=== PATIENT | female | born 1985 | race American Indian/Alaskan Native ===

== ENCOUNTER 2020-03-11 06:31 | Emergency (ER) | payer SELFPAY ==
[2020-03-11 06:50] VITALS: BP 123/88
[2020-03-11] MEDS ORDERED: ONDANSETRON 4 MG/2 ML INJ IV ONE (07:41)
[2020-03-11] MEDS ORDERED: SODIUM CHLORIDE 0.9% 1000 ML 1,000 ML IV ONE (07:41)
[2020-03-11] MEDS ORDERED: HYDROmorphone 1 MG/1 ML INJ IV ONE (07:42)
[2020-03-11 07:58] LABS: Basophils # (Auto) 0.1 K/mm3 (0.0-0.1); Basophils % (Auto) 0.4 % (0.0-1.8); Eosinophils # (Auto) 0.1 K/mm3 (0.0-0.4); Eosinophils % (Auto) 0.7 % (0.0-4.3); Hemoglobin 13.3 gm/dl (10.1-14.3); Lymphocytes # (Auto) 2.1 K/mm3 (1.2-5.4); Lymphocytes % (Auto) 13.7 % (13.4-35.0); Mean Corpuscular HGB Conc 33 % (30-34); Mean Corpuscular Volume 90 fl (79-97); Monocytes # (Auto) 0.5 K/mm3 (0.0-0.8); Platelet Count 354 K/mm3 (140-440); Red Blood Count 4.43 M/mm3 (3.65-5.03); Red Cell Distribution Width 13.5 % (13.2-15.2)
--- NOTE | 2020-03-11 08:14 | Emergency Department Report ---
ED Abdominal Pain HPI - General Chief Complaint: Abdominal Pain Stated Complaint: ABDOMINAL PAIN Time Seen by Provider: 03/11/20 07:36 Source: patient Mode of arrival: Ambulatory Limitations: No Limitations - History of Present Illness Initial Comments: Patient is a 34-year-old female presents emergency room with complaints of upper abdominal pain that began 2 hours prior to arrival. She states that she has pain at her hernia site. She states that she has never seen a general surgeon. She has associated nausea and vomiting that began this morning. She denies any diarrhea, fever, urinary symptoms, hematochezia, hematemesis, melena. Patient states that she drank a significant amount of alcohol last night with her friends due to another friend passing away. She denies any SI or HI. She denies any other past medical history. She denies allergies to medications. She states she is currently on her menstrual cycle. Severity scale (0 -10): 10 - Related Data Previous Rx's Medication Instructions Recorded Last Taken Type Fluconazole [Diflucan TAB] 100 mg PO QDAY #1 tablet 03/11/20 Unknown Rx Ondansetron [Zofran Odt] 4 mg PO Q8HR PRN #10 tab.rapdis 03/11/20 Unknown Rx traMADoL [Ultram 50 MG tab] 50 mg PO Q6HR PRN #7 tablet 03/11/20 Unknown Rx Allergies Allergy/AdvReac Type Severity Reaction Status Date / Time No Known Allergies Allergy Unverified 03/11/20 06:52 ED Review of Systems ROS: Stated complaint: ABDOMINAL PAIN Other details as noted in HPI Comment: All other systems reviewed and negative ED Past Medical Hx - Past Medical History Previous Medical History?: Yes Additional medical history: Hernia - Surgical History Past Surgical History?: No - Social History Smoking Status: Never Smoker Substance Use Type: None - Medications Home Medications: Home Medications Medication Instructions Recorded Confirmed Last Taken Type Fluconazole [Diflucan TAB] 100 mg PO QDAY #1 tablet 03/11/20 Unknown Rx Ondansetron [Zofran Odt] 4 mg PO Q8HR PRN #10 tab.rapdis 03/11/20 Unknown Rx traMADoL [Ultram 50 MG tab] 50 mg PO Q6HR PRN #7 tablet 03/11/20 Unknown Rx ED Physical Exam - General Limitations: No Limitations General appearance: alert, other (in moderate distress secondary to pain, tearful) - Head Head exam: Present: atraumatic, normocephalic - Eye Eye exam: Present: normal appearance - ENT ENT exam: Present: mucous membranes moist - Respiratory Respiratory exam: Present: normal lung sounds bilaterally. Absent: respiratory distress, wheezes, rales, rhonchi, stridor, chest wall tenderness, accessory muscle use, decreased breath sounds, prolonged expiratory - Cardiovascular Cardiovascular Exam: Present: regular rate, normal rhythm, normal heart sounds. Absent: systolic murmur, diastolic murmur, rubs, gallop - GI/Abdominal GI/Abdominal exam: Present: soft, tenderness (upper abdominal at ventral hernia site), guarding, hypoactive bowel sounds, hernia (ventral abdominal wall hernia, pt will not allow me to assess, will order pain meds and try to reexamine to see if reducible). Absent: distended, rebound, rigid - Neurological Exam Neurological exam: Present: alert, oriented X3 - Psychiatric Psychiatric exam: Present: normal affect, normal mood - Skin Skin exam: Present: warm, dry, intact ED Course Vital Signs 03/11/20 03/11/20 03/11/20 06:43 07:49 08:19 Temperature 97.7 F Pulse Rate 81 Respiratory 18 18 18 Rate Blood Pressure 123/88 O2 Sat by Pulse 98 Oximetry - Reevaluation(s) Reevaluation #1: 03/11/20 09:20 After Dilaudid administration, repeat abdominal examination performed, there is a small palpable ventral hernia, with a small amount of pressure applied, I was able to reduce hernia - Consultations Consultation #1: 03/11/20 09:[address] Morin, general surgery regarding patient presentation, laboratory and CT study, I advised that after pain medication administration I was able to reduce hernia, Dr. Morin states that patient can follow-up as an outpatient and does not believe white count is due to an infectious source or from the hernia ED Medical Decision Making - Lab Data Result diagrams: 03/11/20 07:40 03/11/20 07:40 - Radiology Data Radiology results: report reviewed CT OF THE ABDOMEN AND PELVIS WITH INTRAVENOUS CONTRAST INDICATION / CLINICAL INFORMATION: Central abdominal pain with nausea and vomiting for 3 hours. Hernia. TECHNIQUE: The patient received 100 cc Omnipaque [address] scans at this [facility] are performed using CT dose reduction for ALARA by means of automated exposure control. COMPARISON: None available. FINDINGS: ABDOMEN: There is a midline anterior abdominal wall hernia above the umbilicus. The mouth of the hernia measures approximately 1.4 cm and the hernia sac measures approximately 4.5 cm transverse. There is a focal crescentic fluid collection within the hernia sac with soft tissue stranding throughout the hernia sac fat. No bowel is seen within the hernia. The liver, spleen, gallbladder, bile ducts and pancreas, adrenal glands, kidneys and bowel demonstrate no significant abnormality. No adenopathy is seen. The lung bases are clear. PELVIS: The distal ureters and urinary bladder are normal. The uterus and adnexal regions are unremarkable. A normal appendix is present and there is no evidence of diverticulitis. No abnormal mass or fluid collection is seen. No significant osseous abnormality is identified. IMPRESSION: Small midline fat-containing epigastric ventral hernia with evidence of acute inflammation. No bowel is seen in the hernia sac. Signer Name: Ethan Peralta MD Signed: 03/11/2020 9:19 AM Workstation Name: [id number] Transcribed By: RT Dictated By: Ethan Peralta MD Electronically Authenticated By: Ethan Peralta MD Signed Date/Time: 03/11/20918 DD/ 2 TD/TT: - Medical Decision Making Patient is a 34-year-old female presents emergency room with complaints of upper abdominal pain that began 2 hours prior to arrival. She states that she has grant n at her hernia site. She states that she has never seen a general surgeon. She has associated nausea and vomiting that began this morning. She denies any diarrhea, fever, urinary symptoms, hematochezia, hematemesis, melena. Patient states that she drank a significant amount of alcohol last night with her friends due to another friend passing away. She denies any SI or HI. She denies any other past medical history. She denies allergies to medications. She states she is currently on her menstrual cycle. vitals are normal. on exam: ventral abdominal wall hernia, pt will not allow me to assess, will order pain meds and try to reexamine to see if reducible, ttp at hernia site. Labs sign ificant for white blood cell count of 15,000, blood alcohol is 0.12. UA shows many red blood cells secondary to patient being on her menstrual cycle, there are white blood cells but no leukocyte esterase and no nitrites, most likely contamination, patient is not having urinary symptoms, do not suspect UTI. Patient does have yeast present in her urine, will give patient fluconazole prescription. Patient given Dilaudid, repeat abdominal examination performed, there is a small palpable ventral hernia, with a small amount of pressure applied, I was able to reduce hernia. CT abd pelvis with IV contrast shows: Small midline fat-containing epigastric ventral hernia with evidence of acute inflammation. No bowel is seen in the hernia sac. Spoke with Dr. Morin, general surgery regarding patient presentation, laboratory and CT study, I advised that after pain medication administration I was able to reduce hernia, Dr. Morin states that patient can follow-up as an outpatient and does not believe white count is due to an infectious source or from the hernia. Patient given fluids, pain medication, nausea medication, after reduction symptoms completely improved and she was feeling much better and able to tolerate p.o. intake and had no further episodes of vomiting. Discussed all findings with patient and need for outpatient general surgery referral. Discussed in detail with patient strict return precautions. Patient given prescription for tramadol and Zofran. Advised patient Please take medication as prescribed. Do not drink alcohol while taking medication. Increase your water intake. Eat a bland liquid diet and then slowly advance your diet as tolerated. Follow-up with a general surgeon. Follow-up with a primary care doctor. Return to emergency room immediately for any new or worsening symptoms including but not limited to worsening pain, hernia not able to be pushed back in, continuous vomiting, unable to keep anything down, unable to have a bowel movement or pass gas, fever, etc. - Differential Diagnosis Pancreatitis, incarcerated hernia, bowel obstruction, gastritis Critical care attestation.: If time is entered above; I have spent that time in minutes in the direct care of this critically ill patient, excluding procedure time. ED Disposition Clinical Impression: Upper abdominal pain, Vaginal annette Ventral hernia Qualifiers: Obstruction and gangrene presence: without obstruction or gangrene Qualified Code(s): K43.9 - Ventral hernia without obstruction or gangrene Nausea and vomiting Qualifiers: Vomiting type: unspecified Vomiting Intractability: non-intractable Qualified Code(s): R11.2 - Nausea with vomiting, unspecified Leukocytosis Qualifiers: Leukocytosis type: unspecified Qualified Code(s): D72.829 - Elevated white blood cell count, unspecified Disposition: DC-01 TO HOME OR SELFCARE Is pt being admited?: No Does the pt Need Aspirin: No Condition: Stable Instructions: Vulvovaginal Candidiasis (ED), Ventral Hernia (ED), Abdominal Pain (ED) Additional Instructions: Please take medication as prescribed. Do not drink alcohol while taking medication. Increase your water intake. Eat a bland liquid diet and then slowly advance your diet as tolerated. Follow-up with a general surgeon. Follow-up with a primary care doctor. Return to emergency room immediately for any new or worsening symptoms including but not limited to worsening pain, hernia not able to be pushed back in, continuous vomiting, unable to keep anything down, unable to have a bowel movement or pass gas, fever, etc. Prescriptions: Fluconazole [Diflucan TAB] 100 mg PO QDAY #1 tablet traMADoL [Ultram 50 MG tab] 50 mg PO Q6HR PRN #7 tablet PRN Reason: Pain , Severe (7-10) Ondansetron [Zofran Odt] 4 mg PO Q8HR PRN #10 tab.rapdis PRN Reason: Nausea And Vomiting Referrals: MEMO MORIN DO [Staff Physician] - 2-3 Days RICHIE BILLY MD [Staff Physician] - 2-3 Days [facility] [Provider Group] - 2-3 Days [facility] [Outside] - 2-3 Days Time of Disposition: 11:26 Print Language: SWAZI
[2020-03-11 08:15] LABS: Alanine Aminotransferase 23 units/L (7-56); BUN/Creatinine Ratio 13; Blood Urea Nitrogen 12 mg/dL (7-17); Calcium 9.6 mg/dL (8.4-10.2); Hemolysis Index 1
--- NOTE | 2020-03-11 09:23 | Cat Scan Report ---
CT OF THE ABDOMEN AND PELVIS WITH INTRAVENOUS CONTRAST INDICATION / CLINICAL INFORMATION: Central abdominal pain with nausea and vomiting for 3 hours. Hernia. TECHNIQUE: The patient received 100 cc Omnipaque [address] scans at this location are performed using CT dose reduction for ALARA by means of automated exposure control. COMPARISON: None available. FINDINGS: ABDOMEN: There is a midline anterior abdominal wall hernia above the umbilicus. The mouth of the rory ia measures approximately 1.4 cm and the hernia sac measures approximately 4.5 cm transverse. There i s a focal crescentic fluid collection within the hernia sac with soft tissue stranding throughout the hernia sac fat. No bowel is seen within the hernia. The liver, spleen, gallbladder, bile ducts and pancreas, adrenal glands, kidneys and bowel demonstrat e no significant abnormality. No adenopathy is seen. The lung bases are clear. PELVIS: The distal ureters and urinary bladder are normal. The uterus and adnexal regions are unremar kable. A normal appendix is present and there is no evidence of diverticulitis. No abnormal mass or f luid collection is seen. No significant osseous abnormality is identified. IMPRESSION: Small midline fat-containing epigastric ventral hernia with evidence of acute inflammatio n. No bowel is seen in the hernia sac. Signer Name: Ethan Peralta MD Signed: 03/11/2020 9:19 AM Workstation Name: [id number]
[2020-03-11] MEDS ORDERED: METOCLOPRAMIDE 10 MG/2 ML INJ IV ONE (09:32)
[2020-03-11 09:56] LABS: Bilirubin,Urine NEG (Negative); Blood,Urine LG (Negative); Color,Urine Red (Yellow); Mucus,Urine 2+ /HPF; Urobilinogen,Urine < 2.0 mg/dL (<2.0)
[2020-03-11 09:58] LABS: WBC,Urine > 180.0 /HPF (0.0-6.0)
== END 2020-03-11 11:41 | disposition home or self-care (01) ==
LOC: ED 06:31
DX: K43.9 Ventral hernia without obstruction or gangrene (principal); D72.829 Elevated white blood cell count, unspecified; R11.2 Nausea with vomiting, unspecified; B37.3 Candidiasis of vulva and vagina; R10.10 Upper abdominal pain, unspecified; Z79.899 Other long term (current) drug therapy
CPT/HCPCS: 36415; 74177; 80053; 81001; 83690; 84703; 85025; 96361; 96374; 96375; 99284; J1170; J2405; J2765; J7030; Q9967; 80320; G0480